=== PATIENT | female | born 1985 | race African-American/Black ===

== ENCOUNTER 2022-01-24 05:18 | Inpatient (IN) | payer OTHER ==
[2022-01-21 09:53] VITALS: BMI 49.1
[2022-01-24] MEDS ORDERED: HYDROmorphone HCl 2 MG/ML VIAL ONE (08:51)
[2022-01-24] MEDS ORDERED: MIDAZOLAM HCL 2 MG/2 ML SINGLE DOSE VIAL ONE ×2 (08:51)
[2022-01-24] MEDS ORDERED: PROPOFOL 20 ML ONE ×3 (08:51)
[2022-01-24] MEDS ORDERED: ROCURONIUM BROMIDE 50 MG/5 ML SYRINGE ONE (08:51)
[2022-01-24] MEDS ORDERED: IBUPROFEN 800 MG/8 ML IJ IVPB ONE (08:56)
[2022-01-24] MEDS ORDERED: BUPIVACAINE LIPOSOME/PF (EXPAREL) 266 MG/20 ML VIAL ONE (08:56)
[2022-01-24] MEDS ORDERED: BUPIVACAINE HCL/PF 0.5% (5MG/ML) 10 ML VIAL ONE (08:56)
[2022-01-24] MEDS ORDERED: LIDOCAINE HCL 1%, 10 MG/ML (20ML VIAL) ONE (09:05)
[2022-01-24] MEDS ORDERED: ceFAZolin SODIUM 1 GM VIAL IVPB ONE (09:45)
[2022-01-24] MEDS ORDERED: NEOSTIGMINE METHYLSULFATE 0.5 MG/ML - 10 ML MDV ONE (13:00)
[2022-01-24] MEDS ORDERED: BENZOIN/ALOE VERA/STORAX/TOLU 58 ML BOTTLE ONE (13:08)
[2022-01-24] MEDS ORDERED: oxyCODONE HCL 5 MG TABLET PO PRN (13:40)
[2022-01-24] MEDS ORDERED: ONDANSETRON 4 MG/2 ML VIAL IVPUSH PRN (13:40)
[2022-01-24] MEDS ORDERED: HYDROmorphone *PCA* 10MG/50ML DISP.SYRIN PCA SCH (13:45)
[2022-01-24] MEDS ORDERED: HYDROmorphone *PCA* 10MG/50ML DISP.SYRIN ONE (13:59)
[2022-01-24] MEDS ORDERED: LACTATED RINGERS SOLUTION 1,000 ML/1,000 ML INFUS.BAG IV SCH (14:30)
[2022-01-25] MEDS ORDERED: ACETAMINOPHEN 500 MG TABLET (FP) PO PRN (08:43)
[2022-01-25] MEDS ORDERED: IBUPROFEN 600 MG TABLET (FP) PO PRN (08:45)
[2022-01-25] MEDS ORDERED: oxyCODONE HCL 5 MG TABLET PO PRN (09:17)
[2022-01-25 09:25] LABS: HEMATOCRIT 26.4 % (32.4-45.2); MCHC 30.1 g/dl (32.0-36.0); MEAN CELL VOLUME 62.5 fl (80-96); MEAN PLT VOLUME 8.7 fl (7.5-11.1); PLATELET COUNT 276 10^3/uL (134-434); RBC 4.23 M/mm3 (3.60-5.2); RDW 19.6 % (11.6-15.6); WHITE BLOOD COUNT 13.1 K/mm3 (4.0-10.0)
[2022-01-25 09:27] LABS: MCH 18.8 pg (25.7-33.7)
[2022-01-25] MEDS: ENOXAPARIN NA (PORCINE) 40 MG/0.4 ML DISP.SYRIN SQ SCH (10:40)
[2022-01-25] MEDS: IBUPROFEN 600 MG TABLET (FP) PO SCH ×3 (10:41→21:56)
[2022-01-25] MEDS: SIMETHICONE 80 MG TAB.CHEW (FP) PO PRN (20:24)
[2022-01-26] MEDS: SIMETHICONE 80 MG TAB.CHEW (FP) PO PRN (02:47)
[2022-01-26] MEDS: IBUPROFEN 600 MG TABLET (FP) PO SCH ×2 (02:48→09:07)
[2022-01-26 06:39] LABS: BASO % 0.2 % (0-2.0); EOS % 0.4 % (0-4.5); HEMATOCRIT 25.6 % (32.4-45.2); HEMOGLOBIN 7.9 GM/dL (10.7-15.3); LYMPH % 28.7 % (8-40); MCHC 30.9 g/dl (32.0-36.0); MEAN CELL VOLUME 62.3 fl (80-96); MEAN PLT VOLUME 9.4 fl (7.5-11.1); MONO % 9.9 % (3.8-10.2); NEUT % 60.8 % (42.8-82.8); PLATELET COUNT 262 10^3/uL (134-434); RBC 4.11 M/mm3 (3.60-5.2); RDW 19.7 % (11.6-15.6); WHITE BLOOD COUNT 8.9 K/mm3 (4.0-10.0)
[2022-01-26 06:47] LABS: MCH 19.3 pg (25.7-33.7)
[2022-01-26] MEDS: ENOXAPARIN NA (PORCINE) 40 MG/0.4 ML DISP.SYRIN SQ SCH (09:08)
[2022-01-26 10:24] VITALS: BP 131/73; PULSE 80; TEMP 98.1
== END 2022-01-26 13:05 | disposition home or self-care (01) | DRG 743 ==
LOC: J2C 05:18 → EDSTATUS 08:00 → J3W 16:29
PROVIDERS: ADMIT Obstetrics & Gynecology; ATTEND Obstetrics & Gynecology
PROC: 0UB90ZZ Excision of Uterus, Open Approach (ICD-10-PCS; principal; 2022-01-24 09:00)
DX: D25.9 Leiomyoma of uterus, unspecified (principal); D64.9 Anemia, unspecified; N94.6 Dysmenorrhea, unspecified
CPT/HCPCS: 36415; 85025; 85027; 86900; 88307-TC; 94010; 94760